=== PATIENT | female | born 1990 | race Two or more races ===

== ENCOUNTER 2020-10-27 09:35 | Emergency (ER) | payer SELFPAY ==
[~2020-10-27] VITALS: Ht 162.6 cm; Wt 54.0 kg
[2020-10-27 09:57] VITALS: BP 109/74
--- NOTE | 2020-10-27 09:57 | NUR ---
PER EMS PT CUT HER WRIST. PT DENIES WANTING TO . SHE HAS BEEN UNDER A LOT OF STRESS WITH FAMILY ISSUES AND RECENT LACK OF EMPLOYMENT. PTS STOPPED THE PT FROM CUTTING ANY FURTHER. PT HAS A 2 INCH SCRATCH TO LEFT WRIST.
--- NOTE | 2020-10-27 10:31 | NUR ---
PERSONNEL CONSULTANT BEDSIDE
[2020-10-27 10:42] LABS: BASOPHILS % (AUTO) 1 % (0-1); EOSINOPHILS % (AUTO) 1 % (1-7); LYMPHOCYTES % (AUTO) 23 % (22-44); MEAN CORPUSCULAR HEMOGLOBIN 27.8 pg (27.0-34.8); MEAN CORPUSCULAR HGB CONC 33.1 g/dL (32.4-35.8); MONOCYTES % (AUTO) 5 % (2-9); NEUTROPHILS % (AUTO) 71 % (42-75); PLATELET COUNT 365 x10^3/uL (130-400); RED BLOOD COUNT 4.45 x10^6/uL (3.82-5.3); RED CELL DISTRIBUTION WIDTH 13.6 % (9.6-15.2)
[2020-10-27 10:43] LABS: MD NO
[2020-10-27 10:50] LABS: ALBUMIN 4.1 g/dL (3.4-5.0); ANION GAP 8 mmol/L (5-15); CALCIUM 9.2 mg/dL (8.5-10.1); CHLORIDE 104 mmol/L (98-107); CREATININE 0.84 mg/dL (0.55-1.02)
[2020-10-27 10:53] LABS: SALICYLATE LEVEL < 1.7 mg/dL (2.8-20.0)
[2020-10-27 11:13] LABS: AMPHETAMINE SCREEN, URINE Negative (Negative); BARBITURATE SCREEN, URINE Negative (Negative); BENZODIAZEPINE SCREEN, URINE Negative (Negative); CANNABINOID SCREEN, URINE Negative (Negative); COCAINE SCREEN, URINE Negative (Negative); METHADONE SCREEN, URINE Negative (Negative); OPIATE SCREEN, URINE Negative (Negative)
--- NOTE | 2020-10-27 11:52 | NUR ---
PT AND SPOUSE REC'VD DISCHARGE INSTRUCTIONS AND EDUCATION. PT AND SPOUSE HAD NO FURTHER QUESTIONS. PT AMBULATEDTO DC AREA, STEADY GAIT.
== END 2020-10-27 11:55 | disposition home or self-care (01) ==
LOC: ED 10:19
DX: T14.90XA Injury, unspecified, initial encounter (principal); F43.0 Acute stress reaction; X58.XXXA Exposure to other specified factors, initial encounter; Y93.89 Activity, other specified; Y92.89 Other specified places as the place of occurrence of the external cause; Y99.9 Unspecified external cause status
CPT/HCPCS: 36415; 80048; 80299; 80307; 80320; 80329; 82040; 84703; 85025; 99283; G0480